=== PATIENT | male | born 1955 | race Caucasian/White ===

== ENCOUNTER 2016-12-03 09:12 | Emergency (ER) | payer OTHER ==
[2016-12-03 09:20] VITALS: BP 149/99; PULSE 65; TEMP 98.7; BMI 27.3
--- NOTE | 2016-12-03 09:40 | PDOC ---
History of Present Illness - General Chief Complaint: Injury Stated Complaint: HEAD INJURY W/ LAC Time Seen by Provider: 12/03/16 09:14 History Source: Patient, Old Records Exam Limitations: No Limitations - History of Present Illness Initial Comments: 12/03/16 09:24 60-year-old male with history of wound to his scalp after striking his head on a low ceiling earlier this morning. There was no loss of consciousness. The patient has complete recall of all events. The patient denies the use of antiplatelet agents, anticoagulant therapy. He denies neck pain, chest pain or headache. He has pain to the local site of the wound. Past History - Travel Traveled outside of the country in the last 30 days: No - Past Medical History Allergies/Adverse Reactions: Allergies Allergy/AdvReac Type Severity Reaction Status Date / Time niacin AdvReac Intermediate severe rash Verified 12/03/16 09:13 [From Niaspan Extended-Release] Home Medications: Ambulatory Orders NK [No Known Home Medication] 12/03/16 Hypercholesterolemia: Yes - Psycho/Social/Smoking Cessation Hx Anxiety: No Suicidal Ideation: No Smoking History: Former smoker Have you smoked in the past 12 months: No Information on smoking cessation initiated: No Hx Alcohol Use: Yes (social) Review of Systems - Review of Systems Constitutional: No: Symptoms Reported HEENTM: No: Symptoms Reported Respiratory: No: Symptoms reported Cardiac (ROS): No: Symptoms Reported ABD/GI: No: Symptoms Reported : No: Symptoms Reported Musculoskeletal: No: Symptoms Reported Integumentary: Yes: See HPI Neurological: No: Symptoms reported *Physical Exam - Vital Signs Last Vital Signs Temp Pulse Resp BP Pulse Ox 98.7 F 65 18 149/99 97 12/03/16 09:12 12/03/16 09:12 12/03/16 09:12 12/03/16 09:12 12/03/16 09:12 - Physical Exam Comments: 12/03/16 09:51 GENERAL: Well developed, well nourished. Awake and alert. No acute distress. HEENT: There is a 4 cm laceration to the central parietal region that is linear and limited to the superficial layers. There is no active bleeding at this time and the wound appears clean and non-contaminated. PERRLA, EOMI. No conjunctival pallor. Sclera are non-icteric. Moist mucous membranes. Oropharynx is clear. NECK: Supple. Full ROM. No JVD. No lymphadenopathy. CARDIOVASCULAR: Regular rate and rhythm. No murmurs, rubs, or gallops. Distal pulses are 2+ and symmetric. PULMONARY: No evidence of respiratory distress. Lungs clear to auscultation bilaterally. No wheezing, rales or rhonchi. ABDOMINAL: Soft. Non-tender. Non-distended. No rebound or guarding. No organomegaly. Normoactive bowel sounds. MUSCULOSKELETAL Normal range of motion at all joints. No bony deformities or tenderness. No CVA tenderness. EXTREMITIES: No cyanosis. No clubbing. No edema. No calf tenderness. SKIN: Warm and dry. Normal capillary refill. No rashes. No jaundice. NEUROLOGICAL: Alert, awake, appropriate. Cranial nerves 2-12 intact. Grossly non-focal exam. PSYCHIATRIC: Cooperative. Good eye contact. Appropriate mood and affect. Procedures - Laceration/Wound Repair Parietal Wound Length: 2.6 to 5.0 cm Wound Explored: clean Wound's Depth, Shape: superficial, linear Irrigated w/ Saline: Yes Betadine Prep: Yes Anesthesia: 2% Lidocaine w/ Epi Amount of Anesthetic (ccs): 6 Wound Debrided: minimal Wound Repaired With: Sutures Suture Size/Type: 4:0 Number of Sutures: 7 Layer Closure: No Sterile Dressing Applied: Yes Splint Applied: No Sling Applied: No Medical Decision Making - Medical Decision Making 12/03/16 09:52 60 y/o male with h/o HLD but non-compliant with meds s/p blunt trauma to the head with a laceration. There was no LOC, he is not on anti-platelet or anti- coagulant therapy and the patient is neurologically intact therefore CT head is not indicated at this time. Plan: 1. Wound repair (see procedure note) 2. Tetanus is up to date 3. Wound care was discussed with patient 4. RTER/PCP for suture removal in 7-10 days 5. Return to the ED if the wound appears red, swollen, has purulent drainage or any other symptoms. Tylenol as need for pain. *DC/Admit/Observation/Transfer Diagnosis at time of Disposition: Scalp laceration, Accident - Discharge Dispostion Disposition: HOME Condition at time of disposition: Stable Admit: No - Patient Instructions Additional Instructions: You have received sutures for your scalp laceration. Please have the sutures taken out in 7-10 days. Limit sun exposure to decrease scarring. Return to the ED if the wound appears red, swollen, has purulent drainage or any other symptoms. You may take Tylenol as need for pain.
== END 2016-12-03 10:00 | disposition home or self-care (01) ==
LOC: FER 09:12
PROC: 0HQ0XZZ Repair Scalp Skin, External Approach (ICD-10-PCS; principal; 2016-12-03)
DX: S01.01XA Laceration without foreign body of scalp, initial encounter (principal); W22.8XXA Striking against or struck by other objects, initial encounter; Y93.89 Activity, other specified; Y92.009 Unspecified place in unspecified non-institutional (private) residence as the place of occurrence of the external cause; E78.00 Pure hypercholesterolemia, unspecified; Z87.891 Personal history of nicotine dependence
CPT/HCPCS: 12002; 99284-25

== ENCOUNTER 2018-02-12 07:49 | Day surgery (SDC) | payer OTHER ==
[2018-02-10 10:35] VITALS: BMI 27.3
[2018-02-12] MEDS ORDERED: PROPOFOL 20 ML ONE ×4 (08:01→09:42)
[2018-02-12] MEDS ORDERED: LIDOCAINE HCL/PF 2% SDV 5ML VIAL ONE (08:03)
[2018-02-12] MEDS ORDERED: GLUCAGON 1 MG KIT ONE (09:27)
[2018-02-12 10:29] VITALS: TEMP 98
[2018-02-12 11:35] VITALS: BP 155/74; PULSE 60
--- NOTE | 2018-02-13 14:43 | PATH ---
Surgical Pathology Report Patient Name: BEVERLEY LOPEZ [facility]. Rec. #: [id number] /Age/Gender: 1955 (Age: 62) / M Account: [id number] Location: [facility]ENDOSCOPY Taken: 02/12/2018 Received: 02/12/2018 Reported: 02/13/2018 Physicians: Ryne Salazar M.D. Specimen(s) Received SIGMOID COLON POLYP Clinical History r/o colon cancer, history of polyps Postoperative diagnosis: proximal sigmoid polyp, segmental inflammation Internal/external hemorrhoids Final Diagnosis PROXIMAL SIGMOID COLON, BIOPSY: TUBULAR ADENOMA. Electronically Signed Yessenia Gong M.D. Gross Description Received in formalin, labeled "proximal sigmoid" is a walker, irregular portion of soft tissue measuring 0.2 cm. in greatest dimension. The specimen is submitted in toto in one cassette. LUIS MIGUEL/02/12/2018 lise/02/12/2018
== END 2018-02-12 11:36 | disposition home or self-care (01) ==
LOC: FASU-ENDO 07:49
PROVIDERS: ATTEND Internal Medicine Gastroenterology
PROC: 0DBM8ZX Excision of Descending Colon, Via Natural or Artificial Opening Endoscopic, Diagnostic (ICD-10-PCS; principal; 2018-02-12 09:23)
DX: Z12.11 Encounter for screening for malignant neoplasm of colon (principal); K57.30 Diverticulosis of large intestine without perforation or abscess without bleeding; K58.8 Other irritable bowel syndrome; M62.89 Other specified disorders of muscle; K64.8 Other hemorrhoids; D12.5 Benign neoplasm of sigmoid colon

== ENCOUNTER 2019-07-08 12:24 | Emergency (ER) | payer OTHER ==
--- NOTE | 2019-07-08 12:29 | PDOC ---
History of Present Illness - General Chief Complaint: Pain Stated Complaint: EPIGASTRIC PAIN WITH BELCHING Time Seen by Provider: 07/08/19 12:28 History Source: Patient Exam Limitations: No Limitations - History of Present Illness Initial Comments: 63 year old male with PMH bradycardia (HR in 40s), HTN, HLD, GERD (medication noncompliance), colon polyps, diverticulitis presented to ED for epigastric pain x2 days. Pt reported his pain is constant, waxing and waning, sharp, non- radiating, no alleviating or aggravating factors. Pt admitted to nausea, 1 episode of vomiting today (denied blood). Pt reported he took Peptobismol and Bentyl today without relief of his symptoms. Pt was seen by Dr. Marie STILL today for same symptoms, who advised him to come to the ED for evaluation of biliary pathology. Pt reported he has had GERD >10 years, but does not take medication, "every so often I will take a Zantac here and there", denied hx of endoscopy. Social: admitted to everyday marijuana use, social ETOH use, prior nicotine use Family cardiac history: -Father: [place] in 50s, CABG -Mother: denied -Siblings: denied ROS General: admitted to chills, generalized weakness. denied fever. HEENT: denied sore throat, rhinorrhea, ear pain. Cardiovascular: denied chest pain, palpitations, syncope, diaphoresis. Respiratory: denied shortness of breath, cough, sputum production, hemoptysis. Gastrointestinal: admitted to abdominal pain, nausea, vomiting. denied diarrhea , constipation, blood in stool. Genitourinary: denied dysuria, increased urinary frequency, hematuria, urinary incontinence, flank pain. Back: denied back pain. Musculoskeletal: denied joint pain, muscle pain, joint swelling. Neurological: denied headache, dizziness, numbness, tingling, weakness. Integumentary: denied rash, laceration, abrasion. Hematologic/Lymphatic: denied bruising or bleeding. PE Constitutional: Well-nourished, Well-developed, appearing stated age. HEENT: head is normocephalic, atraumatic. EOMI. PERRLA. Neck: supple. Full ROM. Cardiovascular: regular heart rhythm. no murmurs. no pericardial friction rub. Respiratory: clear to auscultation bilaterally. no crackles, rhonchi or wheezing. no stridor. Gastrointestinal: soft, nontender. decreased, but present bowel sounds. no rebound, guarding, masses. jean negative. mcburney nontender. no ecchymoses to abdomen. no rash to abdomen. Extremities: peripheral pulses intact. no lower extremity edema. Neurological: CN 2-12 grossly intact. moves all four extremities. Psych: awake, alert, oriented x3. follows commands. answers questions appropriately. Past History - Past Medical History Allergies/Adverse Reactions: Allergies Allergy/AdvReac Type Severity Reaction Status Date / Time niacin AdvReac Intermediate severe rash Verified 07/08/19 12:27 [From Niaspan Extended-Release] Home Medications: Ambulatory Orders NK [No Known Home Medication] 07/08/19 GI Disorders: Yes (GERD) Hypercholesterolemia: Yes (BORDERLINE NO MEDS) - Surgical History Abdominal Surgery: No Appendectomy: No Cardiac Surgery: No Cholecystectomy: No - Suicide/Smoking/Psychosocial Hx Smoking History: Former smoker Have you smoked in the past 12 months: No If you are a former smoker, when did you quit?: 1970S Hx Alcohol Use: Yes (SOCIAL) Drug/Substance Use Hx: No Substance Use Type: Alcohol, Marijuana Hx Substance Use Treatment: No ED Treatment Course - LABORATORY CBC & Chemistry Diagram: 07/08/19 13:18 07/08/19 13:18 Medical Decision Making - Medical Decision Making 63 year old male with above PMH presented to ED for epigastric pain x2 days. Initial Vital Signs Temp Pulse Resp BP Pulse Ox 98.7 F 48 L 16 176/93 H 99 07/08/19 12:26 07/08/19 12:26 07/08/19 12:26 07/08/19 12:26 07/08/19 12:26 Afebrile. Bradycardia - hx of similar. No tachypnea. Hypertensive - pt is in pain. No hypoxia on room air. Labs ordered: CBC, CMP, lipase, coags Imaging ordered: RUQ US Medications ordered: pepcid IV, zofran 4 mg IV once, normal saline bolus 1000 cc once EKG performed at 1446: sinus bradycardia, rate 45, regular rhythm, normal axis, no acute ST changes. 07/08/19 13:41 CBC WBC 14.5 K/mm3 (4.0-10.8) H 07/08/19 13:18 RBC 5.35 M/mm3 (4.00-5.60) 07/08/19 13:18 Hgb 15.8 GM/dl (11.7-16.9) 07/08/19 13:18 Hct 47.6 % (35.4-49) 07/08/19 13:18 MCV 89.0 fl (80-96) 07/08/19 13:18 MCH 29.5 pg (25.7-33.7) 07/08/19 13:18 MCHC 33.2 g/dl (32.0-35.9) 07/08/19 13:18 RDW 13.7 % (11.9-15.9) 07/08/19 13:18 Plt Count 249 K/MM3 (134-434) 07/08/19 13:18 MPV 9.1 fl (7.5-11.1) 07/08/19 13:18 Absolute Neuts (auto) 12.9 K/mm3 07/08/19 13:18 Neutrophils % 88.7 % (42.8-82.8) H D 07/08/19 13:18 Lymphocytes % 5.1 % (8-40) L D 07/08/19 13:18 Monocytes % 4.0 % (3.8-10.2) 07/08/19 13:18 Eosinophils % 0.0 % (0-4.5) D 07/08/19 13:18 Basophils % 2.2 % (0-2.0) H D 07/08/19 13:18 Leukocytosis with left shift. No anemia. 07/08/19 14:09 Pt reassessed, reported improvement of pain, abdomen soft/nontender. CMP Sodium 141 mmol/L (136-145) 07/08/19 13:18 Potassium 4.0 mmol/L (3.5-5.1) 07/08/19 13:18 Chloride 103 mmol/L (98-107) 07/08/19 13:18 Carbon Dioxide 26 mmol/L (21-32) 07/08/19 13:18 Anion Gap 12 MMOL/L (8-16) 07/08/19 13:18 BUN 13.0 mg/dl (7-18) 07/08/19 13:18 Creatinine 1.0 mg/dl (0.55-1.3) 07/08/19 13:18 Est GFR (CKD-EPI)AfAm 93.08 07/08/19 13:18 Est GFR (CKD-EPI)NonAf 80.31 07/08/19 13:18 Random Glucose 159 mg/dl (74-106) H 07/08/19 13:18 Calcium 9.2 mg/dl (8.5-10) 07/08/19 13:18 Total Bilirubin 1.1 mg/dl (0.2-1) H 07/08/19 13:18 AST 15 U/L (15-37) 07/08/19 13:18 ALT 15 U/L (13-61) 07/08/19 13:18 Alkaline Phosphatase 71 U/L (45-117) 07/08/19 13:18 Troponin I < 0.03 ng/ml (0.00-0.05) 07/08/19 13:18 Total Protein 7.8 g/dl (6.4-8.2) 07/08/19 13:18 Albumin 4.6 g/dl (3.4-5.0) 07/08/19 13:18 No electrolyte abnormalities. No JAKI. No transaminitis. Troponin wnl. Pending lipase - send out to [place]. Pending RUQ US report. 07/08/19 14:38 Abdomen US report: Name: BEVERLEY LOPEZ DEPARTMENT OF RADIOLOGY Phys: Michelle Herron RESIDENT : 1955 Age: 63 Sex: M [facility] Acct: [id number] Loc: [address] Exam Date: 07/08/19 [facility] [place] [address] Unit Number: [id number] EXAM #: TYPE/EXAM: RESULT: [id number] US/ABDOMEN US -LIMITED Evaluate for epigastric pain Right upper abdomen ultrasound. The liver measures 18 cm in sagittal length with a slightly coarse echotexture. Gallbladder is adequately distended without intraluminal stones or thickening of its wall. Revenue Field Agent reported negative Jean's sign. No pericholecystic free fluid is present. No intra or extrahepatic bile duct dilatation is seen. The right kidney measures 10.4 cm sagittal length and appears unremarkable. Nonvisualization of the pancreas likely due to overlying bowel gas. Visualized portion of the proximal abdominal aorta and inferior vena cava appear unremarkable. Normal flow in the main portal vein. IMPRESSION: Mild hepatomegaly with a slightly coarse echotexture suggestive of mild fatty infiltration versus hepatocellular disease. Please correlate with liver enzymes. No gallstones identified. Nonvisualization of the pancreas likely due to overlying bowel gas. Limited visualization of the right kidney that appears grossly unremarkable. Reported By: Viktoriya Borja MD 07/08/19 1431 07/08/19 14:[address] Salazar about the patient on the telephone, I updated him on the RUQ US and lab results. He stated if lipase is normal pt can be discharged and follow up outpatient. Pending lipase. 07/08/19 15:23 Lipase wnl. Dispo: discharged *DC/Admit/Observation/Transfer Diagnosis at time of Disposition: Fatty liver, Abdominal pain, Gastritis - Discharge Dispostion Condition at time of disposition: Stable - Referrals Referrals: Tapan Gilmore MD [Primary Care Provider] - Ryne Salazar MD [Staff Physician] - - Patient Instructions Printed Discharge Instructions: DI for Gastroesophageal Reflux Disease (GERD), DI for Abdominal Pain-Adult, GERD Diet, DI for Nonalcoholic Fatty Liver Disease Additional Instructions: Your lab work showed an elevated white blood cell count - have this number repeated by your primary care doctor or GI doctor within 7 days. The rest of your lab work was normal. Your Abdominal Ultrasound showed fatty liver changes, but no gall stones. The report is below. -US Report: Name: BEVERLEY LOPEZ DEPARTMENT OF RADIOLOGY Phys: Michelle Herron RESIDENT : 1955 Age: 63 Sex: M [facility] Acct: [id number] Loc: [address] Exam Date: 07/08/19 Status: [place] [address] Unit Number: [id number] EXAM #: TYPE/EXAM: RESULT: [id number] US/ABDOMEN US -LIMITED Evaluate for epigastric pain Right upper abdomen ultrasound. The liver measures 18 cm in sagittal length with a slightly coarse echotexture. Gallbladder is adequately distended without intraluminal stones or thickening of its wall. Revenue Field Agent reported negative Jean's sign. No pericholecystic free fluid is present. No intra or extrahepatic bile duct dilatation is seen. The right kidney measures 10.4 cm sagittal length and appears unremarkable. Nonvisualization of the pancreas likely due to overlying bowel gas. Visualized portion of the proximal abdominal aorta and inferior vena cava appear unremarkable. Normal flow in the main portal vein. IMPRESSION: Mild hepatomegaly with a slightly coarse echotexture suggestive of mild fatty infiltration versus hepatocellular disease. Please correlate with liver enzymes. No gallstones identified. Nonvisualization of the pancreas likely due to overlying bowel gas. Limited visualization of the right kidney that appears grossly unremarkable. Reported By: Viktoriya Borja MD 07/08/19 3728 Follow up with your primary care doctor within 3 days,. Your care is not complete until you follow up. Bring all paperwork given to you today to your appointment. Follow up with your manager event within 3 days. Your care is not complete until you follow up. Bring all paperwork given to you today to your appointment. - Post Discharge Activity
[2019-07-08 12:55] VITALS: TEMP 98.7; BMI 28.2
[2019-07-08] MEDS ORDERED: ONDANSETRON 4 MG/2 ML VIAL IVPUSH ONE (12:59)
[2019-07-08] MEDS ORDERED: SODIUM CHLORIDE 1,000 ML IV STA (12:59)
[2019-07-08] MEDS ORDERED: FAMOTIDINE 20 MG/50 ML IVPB 20 MG/50 ML MG IVPB ONE ×2 (12:59→13:02)
[2019-07-08] MEDS ORDERED: ONDANSETRON 4 MG/2 ML VIAL ONE (13:02)
[2019-07-08 13:34] LABS: BASO % 2.2 % (0-2.0); HEMATOCRIT 47.6 % (35.4-49); HEMOGLOBIN 15.8 GM/dl (11.7-16.9); LYMPH % 5.1 % (8-40); MCH 29.5 pg (25.7-33.7); MCHC 33.2 g/dl (32.0-35.9); MEAN PLT VOLUME 9.1 fl (7.5-11.1); NEUT % 88.7 % (42.8-82.8); PLATELET COUNT 249 K/MM3 (134-434); RBC 5.35 M/mm3 (4.00-5.60); RDW 13.7 % (11.9-15.9); WHITE BLOOD COUNT 14.5 K/mm3 (4.0-10.8)
[2019-07-08 13:43] LABS: ALBUMIN 4.6 g/dl (3.4-5.0); BILIRUBIN,TOTAL 1.1 mg/dl (0.2-1); CALCIUM 9.2 mg/dl (8.5-10); TOT PROT 7.8 g/dl (6.4-8.2)
--- NOTE | 2019-07-08 13:43 | PDOC ---
Attending Attestation - Resident Resident Name: Michelle Herron - ED Attending Attestation I have performed the following: I have examined & evaluated the patient, The case was reviewed & discussed with the resident, I agree w/resident's findings & plan, Exceptions are as noted - HPI HPI: 07/08/19 13:20 63 M with h/o bradycardia (HR in 40s), HTN, HLD, GERD (medication noncompliance) , colon polyps, diverticulitis presenting to ED with 1 day of abdominal bloating , discomfort, nausea, and vomiting. Pt states symptoms started last night after smoking marijuana. Endorses epigastric discomfort but no pain currently. Had 1 episode of N+V today. No diarrhea/constipation. Denies F/C. Denies CP/SOB. - Physicial Exam PE: 07/08/19 13:24 GENERAL: Awake, alert, and fully oriented, in no acute distress. HEAD: No signs of trauma EYES: PERRLA, EOMI, sclera anicteric, conjunctiva clear ENT: Auricles normal inspection, hearing grossly normal, nares patent, oropharynx clear without exudates. Moist mucosa NECK: Nontender, no stepoffs, Normal ROM, supple, no lymphadenopathy, JVD, or masses LUNGS: Breath sounds equal, clear to auscultation bilaterally. No wheezes, and no crackles HEART: Regular rate and rhythm, normal S1 and S2, no murmurs, rubs or gallops ABDOMEN: Soft, nontender, normoactive bowel sounds. No guarding, no rebound. No masses EXTREMITIES: Normal range of motion, no edema. No clubbing or cyanosis. No cords, erythema, or tenderness NEUROLOGICAL: Cranial nerves II through XII intact. 5/5 strength and sensation in all extremities, Normal speech, normal gait, normal cerebellar function SKIN: Warm, Dry, normal turgor, no rashes or lesions noted. - Medical Decision Making 07/08/19 13:43 63 M with epigastric pain, N+V. Abdomen benign. Will evaluate for biliary colic. R/o ACS with EKG and trop. - Labs, lipase, trop - EKG - RUQ sono - GI cocktail 07/08/19 14:52 Pt with leukocytosis. Labs otherwise wnl US negative Discussed with Dr. Salazar, who agrees with outpt f/u. Will send pt with script for PPI. Pt is well appearing, with normal vitals. Clinically stable for DC at this time. I discussed the physical exam findings, ancillary test results and final diagnoses with the patient. I answered all of the patient's questions. The patient was satisfied with the care received and felt comfortable with the discharge plan and treatment plan. The patient agrees to follow up with the primary care physician within 24-72 hours.
[2019-07-08 13:47] LABS: INR 1.21 (0.82-1.09); PROTHROMBIN TIME (PATIENT) 13.5 SEC (10.2-13.0)
[2019-07-08] MEDS ORDERED: MAG HYDROX/AL HYDROX/SIMETH 30 ML UNIT-DOSE CUP PO ONE (14:55)
[2019-07-08] MEDS ORDERED: MAG HYDROX/AL HYDROX/SIMETH 30 ML UNIT-DOSE CUP ONE (14:57)
[2019-07-08 15:31] VITALS: BP 145/93; PULSE 46
--- NOTE | 2019-07-09 11:55 | EKG ---
Test Reason : Blood Pressure : / mmHG Vent. Rate : 045 BPM Atrial Rate : 045 BPM P-R Int : 160 ms QRS Dur : 082 ms QT Int : 492 ms P-R-T Axes : 063 037 026 degrees QTc Int : 425 ms SINUS BRADYCARDIA NO PREVIOUS ECGS AVAILABLE Confirmed by ALEJANDRO MARTINI MD ([id number]) on 07/09/2019 11:54:50 AM Referred By: MURRAY IGNACIO Confirmed By:ALEJANDRO MARTINI MD
== END 2019-07-08 15:39 | disposition home or self-care (01) ==
LOC: FER 12:24
PROC: 3E033GC Introduction of Other Therapeutic Substance into Peripheral Vein, Percutaneous Approach (ICD-10-PCS; principal; 2019-07-08)
PROC: 3E0337Z Introduction of Electrolytic and Water Balance Substance into Peripheral Vein, Percutaneous Approach (ICD-10-PCS; 2019-07-08)
DX: K76.0 Fatty (change of) liver, not elsewhere classified (principal); K29.70 Gastritis, unspecified, without bleeding; R10.9 Unspecified abdominal pain
CPT/HCPCS: 36415; 76705-TC; 80053; 83690; 84484; 85025; 85610; 85730; 93005; 99283-25; J7030

== ENCOUNTER 2020-11-13 11:52 | Emergency (ER) | payer OTHER | END 2020-11-13 12:25 | disposition home or self-care (01) | LOC: JVIRT 11:52 | DX: Z11.52 Encounter for screening for COVID-19 (principal) | CPT/HCPCS: Q3014-GT ==

== ENCOUNTER 2021-06-13 10:30 | Emergency (ER) | payer OTHER ==
[2021-06-13 10:47] VITALS: BMI 28.1
[2021-06-13] MEDS ORDERED: SODIUM CHLORIDE 1,000 ML IV STA (10:55)
[2021-06-13] MEDS ORDERED: ACETAMINOPHEN 1000 MG/100 ML VIAL (NON FORMULARY) IVPB ONE (10:55)
[2021-06-13] MEDS ORDERED: ONDANSETRON 4 MG/2 ML VIAL IVPB ONE (10:55)
[2021-06-13] MEDS ORDERED: FAMOTIDINE 20 MG/50 ML IVPB 20 MG/50 ML MG IVPB ONE ×2 (10:55→11:23)
[2021-06-13] MEDS ORDERED: ACETAMINOPHEN INJECTION 100 ML IVPB ONE (11:24)
[2021-06-13] MEDS ORDERED: ONDANSETRON 4 MG/2 ML VIAL ONE ×2 (11:24→13:04)
[2021-06-13 11:44] LABS: ALBUMIN 4.6 g/dl (3.4-5.0); CALCIUM 9.4 mg/dl (8.5-10)
[2021-06-13 11:45] LABS: HEMATOCRIT 46.4 % (35.4-49); HEMOGLOBIN 16.1 GM/dl (11.7-16.9); MCH 30.2 pg (25.7-33.7); MCHC 34.8 g/dl (32.0-35.9); MEAN CELL VOLUME 86.9 fl (80-96); MEAN PLT VOLUME 9.6 fl (7.5-11.1); PLATELET COUNT 241 10^3/uL (134-434); RBC 5.33 M/mm3 (4.00-5.60); RDW 13.6 % (11.9-15.9); WHITE BLOOD COUNT 15.5 K/mm3 (4.0-10.8)
[2021-06-13] MEDS ORDERED: ONDANSETRON 4 MG/2 ML VIAL IVPUSH ONE (13:02)
[2021-06-13 13:26] VITALS: BP 176/99; PULSE 53; TEMP 99.5
== END 2021-06-13 14:52 | disposition home or self-care (01) ==
LOC: FER 10:30
PROC: 3E0333Z Introduction of Anti-inflammatory into Peripheral Vein, Percutaneous Approach (ICD-10-PCS; principal; 2021-06-13)
PROC: 3E033GC Introduction of Other Therapeutic Substance into Peripheral Vein, Percutaneous Approach (ICD-10-PCS; 2021-06-13)
PROC: 3E033GC Introduction of Other Therapeutic Substance into Peripheral Vein, Percutaneous Approach (ICD-10-PCS; 2021-06-13)
PROC: 3E033GC Introduction of Other Therapeutic Substance into Peripheral Vein, Percutaneous Approach (ICD-10-PCS; 2021-06-13)
PROC: 3E0337Z Introduction of Electrolytic and Water Balance Substance into Peripheral Vein, Percutaneous Approach (ICD-10-PCS; 2021-06-13)
DX: K57.80 Diverticulitis of intestine, part unspecified, with perforation and abscess without bleeding (principal); R19.7 Diarrhea, unspecified; R10.84 Generalized abdominal pain
CPT/HCPCS: 36415; 74177-TC; 80053; 81003; 81015; 83690; 85025; 86850; 86900; 86901; 87086; 99285-25; J0131

== ENCOUNTER 2022-09-27 11:30 | Inpatient (IN) | payer OTHER ==
[2022-09-27] MEDS ORDERED: ONDANSETRON 4 MG/2 ML VIAL IVPUSH ONE (11:54)
[2022-09-27] MEDS ORDERED: ACETAMINOPHEN 1000 MG/100 ML BAG IVPB ONE (11:54)
[2022-09-27] MEDS ORDERED: SODIUM CHLORIDE 0.9% 500 ML INFUS.BAG IV ONE ×2 (11:54→13:55)
[2022-09-27] MEDS ORDERED: MAG HYDROX/AL HYDROX/SIMETH 30 ML UNIT-DOSE CUP PO ONE (11:54)
[2022-09-27] MEDS ORDERED: FAMOTIDINE 20 MG/50 ML IVPB 20 MG/50 ML MG IVPB ONE ×2 (11:54→12:17)
[2022-09-27] MEDS ORDERED: ACETAMINOPHEN INJECTION 100 ML IVPB ONE (12:17)
[2022-09-27] MEDS ORDERED: ONDANSETRON 4 MG/2 ML VIAL ONE (12:17)
[2022-09-27] MEDS ORDERED: MAG HYDROX/AL HYDROX/SIMETH 30 ML UNIT-DOSE CUP ONE (12:17)
[2022-09-27 12:33] LABS: HEMATOCRIT 52.3 % (35.4-49); HEMOGLOBIN 18.3 G/dL (11.7-16.9); MCH 30.3 pg (25.7-33.7); MEAN CELL VOLUME 86.6 fl (80-96); MEAN PLT VOLUME 8.4 fl (7.5-11.1); PLATELET COUNT 291.2 10^3/uL (134-434); RBC 6.04 10^6/uL (4.00-5.60); RDW 14.3 % (11.9-15.9); WHITE BLOOD COUNT 12.3 10^3/uL (4.0-10.8)
[2022-09-27 12:40] LABS: ALBUMIN 4.7 g/dl (3.4-5.0); BILIRUBIN,TOTAL 1.7 mg/dl (0.2-1); CALCIUM 9.5 mg/dl (8.5-10); CREATININE 1.3 mg/dl (0.55-1.3); MAGNESIUM 2.5 mg/dL (1.8-2.4); TOT PROT 8.5 g/dl (6.4-8.2)
[2022-09-27 13:15] LABS: PLATELET ESTIMATE ADEQUATE
[2022-09-27] MEDS ORDERED: POTASSIUM CHLORIDE TABS 20 MEQ TABLET.ER (FP) PO ONE ×2 (14:48→15:29)
[2022-09-27 15:47] LABS: CALCIUM 8.2 mg/dl (8.5-10); CREATININE 1.1 mg/dl (0.55-1.3)
[2022-09-27] MEDS ORDERED: CEFTRIAXONE 1 GM in DEXTROSE 5%-WATER 100 ML IVPB ONE (16:07)
[2022-09-27] MEDS ORDERED: ACETAMINOPHEN 1000 MG/100 ML BAG IVPB PRN (17:03)
[2022-09-27 18:22] VITALS: BMI 27.6
[2022-09-27] MEDS: amLODIPine BESYLATE 5 MG TABLET (FP) PO SCH (20:46)
[2022-09-28 08:43] LABS: ALBUMIN 3.5 g/dl (3.4-5.0); BILIRUBIN,TOTAL 1.4 mg/dl (0.2-1); CALCIUM 8.3 mg/dl (8.5-10); CREATININE 0.9 mg/dl (0.55-1.3); MAGNESIUM 2.2 mg/dL (1.8-2.4); PHOSPHOROUS 2.6 mg/dl (2.5-4.9); TOT PROT 6.3 g/dl (6.4-8.2)
[2022-09-28 08:45] LABS: ACTIVATED PTT 31.6 SECONDS (25.2-36.5); INR 1.05 (0.83-1.09); PROTHROMBIN TIME (PATIENT) 12.1 SEC (9.7-13.0)
[2022-09-28] MEDS: CEFTRIAXONE 1 GM in DEXTROSE 5%-WATER - 50 ML IVPB SCH (09:32)
[2022-09-28] MEDS: amLODIPine BESYLATE 5 MG TABLET (FP) PO SCH (09:32)
[2022-09-28 10:28] LABS: HEMATOCRIT 43.6 % (35.4-49); HEMOGLOBIN 14.5 GM/dL (11.7-16.9); MCH 28.6 pg (25.7-33.7); MCHC 33.2 g/dl (32.0-35.9); MEAN PLT VOLUME 9.1 fl (7.5-11.1); PLATELET COUNT 241 10^3/uL (134-434); RBC 5.07 M/mm3 (4.00-5.60); RDW 14.1 % (11.9-15.9); WHITE BLOOD COUNT 7.6 K/mm3 (4.0-10.0)
[2022-09-28] MEDS: ENOXAPARIN NA (PORCINE) 40 MG/0.4 ML DISP.SYRIN SQ SCH (10:28)
[2022-09-28 11:41] LABS: ANISOCYTOSIS 0; HELMET CELLS 0; HOWELL-JOLLY BODIES 0; MACROCYTOSIS 0; OVALOCYTE 0; ROULEAU 0; SICKELED CELLS 0; TARGET CELLS 0; TEAR DROP CELLS 0; TOXIC GRANULATION 0
[2022-09-28] MEDS: FAMOTIDINE 20 MG TABLET PO SCH (18:24)
[2022-09-28] MEDS: PANTOPRAZOLE 40 MG TABLET PO SCH (18:24)
[2022-09-29 09:11] LABS: ALBUMIN 3.4 g/dl (3.4-5.0); BILIRUBIN,TOTAL 1.2 mg/dl (0.2-1); CREATININE 0.9 mg/dl (0.55-1.3); TOT PROT 6.1 g/dl (6.4-8.2)
[2022-09-29 09:12] LABS: HEMATOCRIT 42.3 % (35.4-49); HEMOGLOBIN 14.2 G/dL (11.7-16.9); MCH 29.5 pg (25.7-33.7); MCHC 33.6 g/dl (32.0-35.9); MEAN CELL VOLUME 87.7 fl (80-96); RBC 4.82 10^6/uL (4.00-5.60); RDW 14.3 % (11.9-15.9); WHITE BLOOD COUNT 6.4 10^3/uL (4.0-10.8)
[2022-09-29 09:18] VITALS: BP 148/93; PULSE 57; RESP 13; TEMP 98.1
[2022-09-29] MEDS: CEFTRIAXONE 1 GM in DEXTROSE 5%-WATER - 50 ML IVPB SCH (09:46)
[2022-09-29] MEDS: FAMOTIDINE 20 MG TABLET PO SCH (09:50)
[2022-09-29] MEDS: amLODIPine BESYLATE 5 MG TABLET (FP) PO SCH (09:50)
[2022-09-29] MEDS: ENOXAPARIN NA (PORCINE) 40 MG/0.4 ML DISP.SYRIN SQ SCH (09:50)
[2022-09-29] MEDS: PANTOPRAZOLE 40 MG TABLET PO SCH (09:50)
[2022-09-29 10:07] LABS: CALCIUM 8.4 mg/dl (8.5-10)
== END 2022-09-29 12:53 | disposition home or self-care (01) | DRG 392 ==
LOC: FER 11:30 → FM/S 15:06
PROVIDERS: ADMIT Internal Medicine; ATTEND Internal Medicine
DX: K57.32 Diverticulitis of large intestine without perforation or abscess without bleeding (principal); E87.1 Hypo-osmolality and hyponatremia; N17.9 Acute kidney failure, unspecified; I10 Essential (primary) hypertension; E78.5 Hyperlipidemia, unspecified; E86.0 Dehydration; R55 Syncope and collapse; F12.90 Cannabis use, unspecified, uncomplicated; E87.6 Hypokalemia; I16.0 Hypertensive urgency; Z77.090 Contact with and (suspected) exposure to asbestos
CPT/HCPCS: 0241U-QW; 36415; 71046-TC-FY; 74177-TC; 80048; 80053; 81003; 83605; 83690; 83735; 84100; 84484; 85025; 85027; 85610; 85730; 87086; 93005; 99285-25; Q9967

== ENCOUNTER 2023-01-02 04:17 | Day surgery (SDC) | payer OTHER ==
[2023-01-01 08:46] VITALS: BMI 28.8
[2023-01-02 10:36] VITALS: RESP 18
[2023-01-02 11:06] VITALS: BP 153/85; PULSE 66; TEMP 98
== END 2023-01-02 10:58 | disposition home or self-care (01) ==
LOC: JASU-ENDO 04:17
PROVIDERS: ATTEND Internal Medicine Gastroenterology
PROC: 0DB98ZX Excision of Duodenum, Via Natural or Artificial Opening Endoscopic, Diagnostic (ICD-10-PCS; 2023-01-02)
PROC: 0DB78ZX Excision of Stomach, Pylorus, Via Natural or Artificial Opening Endoscopic, Diagnostic (ICD-10-PCS; 2023-01-02)
PROC: 0DJD8ZZ Inspection of Lower Intestinal Tract, Via Natural or Artificial Opening Endoscopic (ICD-10-PCS; principal; 2023-01-02 09:00)
DX: Z12.11 Encounter for screening for malignant neoplasm of colon (principal); K64.8 Other hemorrhoids; K57.30 Diverticulosis of large intestine without perforation or abscess without bleeding; K44.9 Diaphragmatic hernia without obstruction or gangrene; I85.10 Secondary esophageal varices without bleeding
CPT/HCPCS: 88305-TC; 88342-TC

== ENCOUNTER 2024-07-03 10:57 | Emergency (ER) | payer OTHER ==
[2024-07-03 11:29] VITALS: RESP 18; BMI 28.1
[2024-07-03 12:16] LABS: HEMATOCRIT 51.3 % (35.4-49); HEMOGLOBIN 16.7 G/dL (11.7-16.9); MCH 28.4 pg (25.7-33.7); MCHC 32.6 g/dl (32.0-35.9); MEAN CELL VOLUME 87.2 fl (80-96); MEAN PLT VOLUME 9.1 fl (7.5-11.1); PLATELET COUNT 219.7 10^3/uL (134-434); RBC 5.88 10^6/uL (4.00-5.60); WHITE BLOOD COUNT 10.7 10^3/uL (4.0-10.8)
[2024-07-03 12:25] LABS: ALBUMIN 4.8 g/dl (3.4-5.0); CALCIUM 9.9 mg/dl (8.5-10.1); POTASSIUM 3.8 mmol/L (3.5-5.1); TOT PROT 7.9 g/dl (6.4-8.2)
[2024-07-03] MEDS ORDERED: MAG HYDROX/AL HYDROX/SIMETH 30 ML UNIT-DOSE CUP PO ONE (12:25)
[2024-07-03] MEDS ORDERED: MAG HYDROX/AL HYDROX/SIMETH 30 ML UNIT-DOSE CUP ONE (12:31)
[2024-07-03] MEDS ORDERED: ACETAMINOPHEN INJECTION 100 ML ONE (12:31)
[2024-07-03] MEDS ORDERED: ONDANSETRON 4 MG/2 ML VIAL ONE ×2 (12:31→12:57)
[2024-07-03] MEDS ORDERED: FAMOTIDINE 20 MG/50 ML IVPB 20 MG/50 ML MG IVPB ONE (12:32)
[2024-07-03 12:35] LABS: PLATELET ESTIMATE ADEQUATE
[2024-07-03] MEDS: LACTATED RINGERS SOLUTION 1,000 ML/1,000 ML INFUS.BAG IV STA (12:40)
[2024-07-03] MEDS: ONDANSETRON 4 MG/2 ML VIAL IVPUSH ONE ×2 (12:40→13:02)
[2024-07-03] MEDS: ACETAMINOPHEN 1000 MG/100 ML BAG IVPB ONE (12:45)
[2024-07-03] MEDS: FAMOTIDINE 20 MG/50 ML IVPB 20 MG/50 ML MG IVPB ONE (13:02)
[2024-07-03] MEDS ORDERED: METOCLOPRAMIDE HCL INJECTION 10 MG/2 ML VIAL ONE (13:12)
[2024-07-03] MEDS: METOCLOPRAMIDE HCL INJECTION 10 MG/2 ML VIAL IVPUSH ONE (13:18)
[2024-07-03] MEDS ORDERED: HALOPERIDOL LACTATE 5 MG/ML ONE (14:27)
[2024-07-03 14:41] VITALS: BP 157/96; PULSE 64; TEMP 99.3
[2024-07-03] MEDS: SODIUM CHLORIDE 1,000 ML IV STA (15:06)
[2024-07-03] MEDS: HALOPERIDOL LACTATE 5 MG/ML IM ONE (15:11)
[2024-07-03] MEDS ORDERED: AMOX TR/POT CLAV 875MG/125MG TABLETS (FP) PO ONE (17:34)
[2024-07-03] MEDS ORDERED: AMOX TR/POT CLAV 875MG/125MG TABLETS (FP) ONE (17:36)
== END 2024-07-03 17:43 | disposition home or self-care (01) ==
LOC: FER 10:57
PROC: 3E033GC Introduction of Other Therapeutic Substance into Peripheral Vein, Percutaneous Approach (ICD-10-PCS; principal; 2024-07-03)
PROC: 3E033NZ Introduction of Analgesics, Hypnotics, Sedatives into Peripheral Vein, Percutaneous Approach (ICD-10-PCS; 2024-07-03)
PROC: 3E033GC Introduction of Other Therapeutic Substance into Peripheral Vein, Percutaneous Approach (ICD-10-PCS; 2024-07-03)
PROC: 3E033GC Introduction of Other Therapeutic Substance into Peripheral Vein, Percutaneous Approach (ICD-10-PCS; 2024-07-03)
PROC: 3E033GC Introduction of Other Therapeutic Substance into Peripheral Vein, Percutaneous Approach (ICD-10-PCS; 2024-07-03)
PROC: 3E0337Z Introduction of Electrolytic and Water Balance Substance into Peripheral Vein, Percutaneous Approach (ICD-10-PCS; 2024-07-03)
PROC: 3E023GC Introduction of Other Therapeutic Substance into Muscle, Percutaneous Approach (ICD-10-PCS; 2024-07-03)
DX: K57.32 Diverticulitis of large intestine without perforation or abscess without bleeding (principal); R10.13 Epigastric pain; R10.32 Left lower quadrant pain; R11.2 Nausea with vomiting, unspecified
CPT/HCPCS: 36415; 74177-TC; 80053; 84484; 85027; 93005; 99285-25; J0131; Q9967